=== PATIENT | male | born 1940 | race Caucasian/White ===

== ENCOUNTER 2019-12-04 20:34 | Inpatient (IN) | payer MEDICARE, OTHER ==
[2019-12-04 23:02] VITALS: BP 108/70
[2019-12-04] MEDS ORDERED: Magnesium Hydroxide (MOM) 30 mL UDC PO PRN (23:04)
--- NOTE | 2019-12-05 16:01 | History and Physical ---
History of Present Illness - HPI Chief Complaint: Acute Psychosis HPI: Admitted from [facility]. Patient has history of depression. Patient was making threats to shoot people. Vital Signs: Last Vital Signs Temp 98.0 F 12/05/19 14:00 Pulse 85 12/05/19 14:00 Resp 20 12/05/19 14:00 BP 133/71 12/05/19 14:00 Pulse Ox 94 12/05/19 14:00 Past Medical History Cardiovascular: Report: AFIB, CAD, CHF, HTN, Hyperlipidemia Pulmonary: Report: COPD DIRECTOR TRADE: Report: Peripheral neuropathy GI: Report: Peptic Ulcer Psych: Report: Depression Musculoskeletal: Report: Weakness Rheumatologic: Report: No pertinent Hx Infectious Disease: Report: No Pertinent Hx Renal/: Report: No Pertinent Hx Endocrine: Report: No Pertinent Hx Dermatology: Report: No Pertinent Hx - Past Surgical History Past Surgical History: No pertinent Hx Family Medical History - Family Member Mother History Unknown: Yes Ethnicity: Unknown Living Status: Unknown Social History Smoke: # pack years Alcohol: Other (Dependence) Drugs: None Lives: Jail - Medications Home Medications: Home Medication Medication Instructions Recorded Type Acetaminophen [Tylenol] 2 mg PO Q4HR PRN 12/04/19 History Acetaminophen [Tylenol] 2 tab PO Q4HR PRN 12/04/19 History Amlodipine Besylate 10 mg PO DAILY 12/04/19 History Atorvastatin Calcium [Lipitor] 80 mg PO HS 12/04/19 History Calcium Carbonate [Calcium] 500 mg PO DAILY PRN 12/04/19 History Carvedilol 3.125 mg PO BID 12/04/19 History Cholecalciferol (Vitamin D3) 1,000 units PO DAILY 12/04/19 History [Vitamin D3] Clopidogrel Bisulfate [Clopidogrel] 75 mg PO DAILY 12/04/19 History Diphenhydramine HCl [Benadryl] 1 mg PO HS PRN 12/04/19 History Docusate Sodium [Col-Rite] 250 mg PO BID 12/04/19 History Famotidine [Pepcid] 40 mg PO BID 12/04/19 History Fluticasone/Salmeterol [Airduo 1 each IH Q12HR 12/04/19 History Respiclick 113-14 Mcg] Folic Acid [Folate*] 1 mg PO DAILY 12/04/19 History Gabapentin 100 mg PO TID 12/04/19 History Haloperidol 10 mg PO Q8HR PRN 12/04/19 History Ipratropium/Albuterol Sulfate 3 ml HHN Q6HR 12/04/19 History [Iprat-Albut 0.5-3(2.5) mg/3 ml] Lorazepam [Ativan] 0.5 mg PO Q12HR PRN 12/04/19 History Methocarbamol 500 mg PO Q8HR 12/04/19 History Mirtazapine [Remeron] 7.5 mg PO HS 12/04/19 History Oxycodone HCl/Acetaminophen 1 tab PO Q4HR PRN 12/04/19 History [Percocet 325 mg-10 mg*] Sertraline HCl [Zoloft] 100 mg PO DAILY 12/04/19 History Thiamine [Vitamin B1] 100 mg PO DAILY 12/04/19 History Tiotropium [place] [Spiriva] 18 mcg HHN DAILY 12/04/19 History - Allergies Allergies/Adverse Reactions: Allergies Allergy/AdvReac Type Severity Reaction Status Date / Time No Known Allergies Allergy Verified 12/04/19 22:03 Review of Systems - Review of Systems Constitutional: Report: Weakness Eyes: Report: No Significant ENT: Report: No Significant Respiratory: Report: No Significant Cardiovascular: Report: No Significant Gastrointestinal: Report: No Significant Genitourinary: Report: No Significant Musculoskeletal: Report: No Significant Skin: Report: No Significant Neurological: Report: Weakness Physical Exam - Physical Exam HEENT: Report: Ears Nose Throat within normal limits Neck: Report: Within normal limits Cardiovascular Systems: Report: Regular, Rate and Rhythm, no murmurs noted Respiratory: Report: Clear to Auscultation of lung casillas, Breath Sounds are within normal limits Abdomen: Report: Non-tender to palpation, Bowel Sounds are within normal limits Back: Report: Inspection of back is within normal limits. Extremities: Report: Non-tender to palpation., Patient had full range of motion , No pedal edema was noted on inspection Skin: Report: Color of skin is within normal limits, Warm, Dry, No Rashes noted of the skin Neuro/Psych: Report: A+Ox3, CN II-XII intact, No sensory deficit - Assessment Assessment: * 5150 Hold * Acute Psychosis * BPH * Polyneuropathy * Anemia * GERD * Alcohol dependence * Morbid Obesity * Asthma * PUD * Debility * Tobacco Abuse * COPD * A-Fib * CAD * CHF * HHD * OA Left Shoulder * HLD - Plan Plan: * Continue meds from SNF * Obtain labs * Psych Consult Cranial Nerve Assessment - CRANIAL NERVES alcohol swab:: Yes Distinguishes movements in peripheral field.:: Yes up, down, sideways:: Yes on forehead, cheeks and chin, chews symmetrically:: Yes FACIAL VII: upper: Frowns Symmetrically:: Yes FACIAL VII: Lower: Smiles Symmetrically:: Yes both ears:: Yes GLOSS-PHARYNGEAL IX: Has gag reflex:: Yes VAGUS X: Can make guttural sounds:: Yes ACCESSORY XI: Shrugs shoulders symmetrically:: Yes tremors or fasciculation's:: Yes - MOTOR spasticity, cogwheel, atrophy, tremor, asterixis, other: Yes (Grossly normal) - COORDINATION Finger to nose, heel to haskins, LISA, gait, Romberg: Yes (Grossly normal) - SENSORY signs, Brudzinski, Kernig, neck rigidity:: Yes (Grossly normal) - REFLEXES Brachioradials Right:: Yes Brachioradials Left:: Yes Biceps Right:: Yes Biceps Left:: Yes Triceps Right:: Yes Triceps Left:: Yes Knee Right:: Yes Knee Left:: Yes Ankle Right:: Yes Ankle Left:: Yes Babinski Right:: No Babinski Left:: No
[2019-12-05] MEDS ORDERED: Non-Formulary Item 1 EA (Oxycodone Hcl/Acetaminophen [Percocet 325 Mg-10 Mg*] 1 TAB) PO PRN (20:14)
[2019-12-05] MEDS ORDERED: FLUTICASONE IH SCH (21:00)
[2019-12-05] MEDS ORDERED: SALMETEROL IH SCH (21:00)
[2019-12-06] MEDS: Albuterol/Ipratropium Neb 3 ML AERS HHN SCH ×4 (01:14→18:08)
[2019-12-06] MEDS: Ipratropium Neb 0.5 mg/2.5 mL UD HHN SCH ×2 (01:15→06:15)
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
[2019-12-06] MEDS ORDERED: Non-Formulary Item 1 EA (Tiotropium Bromide [Spiriva] 18 MCG) HHN SCH (09:00)
[2019-12-06] MEDS: Budesonide 0.5 Mg/2 mL Ud HHN SCH (18:08)
[2019-12-06] MEDS: APAP/Oxycodone 5/325mg Tab PO PRN (22:38)
[2019-12-07] MEDS: Albuterol/Ipratropium Neb 3 ML AERS HHN SCH ×4 (01:10→20:00)
--- NOTE | 2019-12-07 03:00 | Progress Notes ---
DATE: 12/06/2019 SUBJECTIVE: Today on [id number] evaluation, very angry man reports "I have my own home, let me go." When attempted to discuss with him what led to his hospitalization, the patient reported just trying to get into penitentiary, is very irritable in regard to his reason for hospitalization. Within the psychiatric hold and very adamant that he never made the statement, still needs lot of redirection. MENTAL STATUS EXAMINATION: Irritable, agitated, anxious, depressed and avoidant. ASSESSMENT AND PLAN: Major depressive disorder, continues to present irritable, depressed, ambivalence about his safety, ____ hurt himself, unable to formulate a safe disposition at this time. Per the returning physician, he was restarted on Zoloft, Aricept. JOB# [id number]
[2019-12-07] MEDS: Budesonide 0.5 Mg/2 mL Ud HHN SCH ×2 (06:23→20:00)
--- NOTE | 2019-12-07 13:29 | Progress Notes ---
DATE: 12/07/2019 SUBJECTIVE: An 78-year-old male, currently in the hospital, refusing to speak with me today, very irritable, upset, was noted to be fairly oriented, withdrawn, depressed, juárez, impulsive, unpredictable. The patient apparently demanding Percocet from staff. Per Dr. Smart's initial assessment, the patient is an 78-year-old male coming in, aggressive, thoughts of shooting people, believing he was in the hospital, multiple medical problems. ASSESSMENT: The patient remains symptomatic, irritable, ongoing concerns for safety, mostly the safety of those around him. PLAN: We will continue inpatient monitoring. JOB# [id number]
--- NOTE | 2019-12-07 14:23 | Internal Medicine Prog Note ---
Internal Medicine Subjective - Subjective Service Date: 12/07/19 Patient seen and examined:: without staff Patient is:: awake, interactive, in bed Per staff patient has:: no adverse event, no episodes of fall (no sob today) Internal Medicine Objective - Physical Exam Vitals and I&O: Vital Signs Temp 98.6 F 12/07/19 06:44 Pulse 75 12/07/19 08:34 Resp 20 12/07/19 06:44 BP 121/71 12/07/19 08:34 Pulse Ox 96 12/07/19 06:44 Intake & Output 12/06/19 12/07/19 12/07/19 18:59 06:59 18:59 Intake Total 800 240 Balance 800 240 Intake: Oral 800 240 Other: # Voids 4 1 # Bowel Movements 0 Active Medications: Current Medications Acetaminophen (Tylenol) 650 mg PO Q4HR PRN PRN Reason: Pain (Mild 1-3) Stop: 02/03/20 20:13 Albuterol/Ipratropium (Duoneb Neb) 3 ml HHN Q6HRT [facility] Stop: 02/04/20 00:59 Last Admin: 12/07/19 13:42 Dose: Not Given Amlodipine Besylate (Norvasc) 10 mg PO DAILY [facility] Stop: 02/04/20 08:59 Last Admin: 12/07/19 08:34 Dose: 10 mg Atorvastatin Calcium (Lipitor) 80 mg PO [facility]; Protocol Stop: 02/04/20 20:59 Last Admin: 12/06/19 20:55 Dose: 80 mg Budesonide (Pulmicort) 0.5 mg HHN BIDRT [facility] Stop: 02/04/20 18:59 Last Admin: 12/07/19 06:23 Dose: 0.5 mg Calcium Carbonate (Os-Mitchell) 500 mg PO DAILY PRN PRN Reason: Indigestion Stop: 02/03/20 20:13 Carvedilol (Coreg) 3.125 mg PO BID [facility] Stop: 02/04/20 08:59 Last Admin: 12/07/19 08:34 Dose: 3.125 mg Cholecalciferol (Vitamin D3) 1,000 iu PO DAILY [facility] Stop: 02/04/20 08:59 Last Admin: 12/07/19 08:34 Dose: 1,000 iu Clopidogrel Bisulfate (Plavix) 75 mg PO DAILY [facility] Stop: 02/04/20 08:59 Last Admin: 12/07/19 08:34 Dose: 75 mg Docusate Sodium (Colace) 250 mg PO BID [facility] Stop: 02/04/20 08:59 Last Admin: 12/07/19 08:34 Dose: 250 mg Donepezil HCl (Aricept) 5 mg PO DAILY [facility] Stop: 02/03/20 13:44 Last Admin: 12/07/19 08:34 Dose: 5 mg Famotidine (Pepcid) 40 mg PO BID [facility] Stop: 02/04/20 08:59 Last Admin: 12/07/19 08:34 Dose: 40 mg Folic Acid (Folate) 1 mg PO DAILY [facility] Stop: 02/04/20 08:59 Last Admin: 12/07/19 08:34 Dose: 1 mg Gabapentin (Neurontin) 100 mg PO TID [facility] Stop: 02/03/20 20:59 Last Admin: 12/07/19 08:34 Dose: 100 mg Magnesium Hydroxide (Milk Of Magnesia) 30 ml PO HS PRN PRN Reason: Constipation Methocarbamol (Robaxin) 500 mg PO Q8HR [facility] Stop: 02/04/20 04:59 Last Admin: 12/07/19 13:43 Dose: Not Given Oxycodone/Acetaminophen (Percocet 5/325mg Oral Tab) 1 tab PO Q4H PRN PRN Reason: Pain (Severe 7-10) Stop: 02/03/20 21:41 Last Admin: 12/06/19 22:38 Dose: 1 tab Sertraline HCl (Zoloft) 50 mg PO DAILY [facility] Stop: 02/03/20 16:59 Last Admin: 12/07/19 08:34 Dose: 50 mg Thiamine HCl (Vitamin B1) 100 mg PO DAILY [facility] Stop: 02/04/20 08:59 Last Admin: 12/07/19 08:34 Dose: 100 mg Zolpidem Tartrate (Ambien) 5 mg PO HS PRN PRN Reason: Insomnia Stop: 02/02/20 23:03 HEENT: NC/AT Neck: Supple Lungs: CTAB Cardiovascular: RRR, Normal S1, Normal S2 Abdomen: soft, non-tender Extremities: clear Internal Medicine Assmt/Plan - Assessment Assessment: 1. COPD exacerbation 2. Severe PAD 3. Etoh dependence 4. Paroxysmal A.fib 5. HTN - Plan Plan: continue supportive care continue duonebs as needed continue [facility] reviewed medical records and d/w r.n.
[2019-12-07] MEDS: APAP/Oxycodone 5/325mg Tab PO PRN (22:00)
[2019-12-07] MEDS: guaiFENesin 200 MG/10 ML UDC PO PRN (22:55)
[2019-12-08] MEDS: Albuterol/Ipratropium Neb 3 ML AERS HHN SCH ×4 (01:00→18:28)
[2019-12-08] MEDS: Budesonide 0.5 Mg/2 mL Ud HHN SCH ×2 (06:18→18:28)
--- NOTE | 2019-12-08 11:48 | Internal Medicine Prog Note ---
Internal Medicine Subjective - Subjective Service Date: 12/08/19 Patient is:: awake, interactive, in bed Per staff patient has:: no adverse event, no episodes of fall (no sob today) Internal Medicine Objective - Physical Exam Vitals and I&O: Vital Signs Temp 97.8 F 12/08/19 05:54 Pulse 74 12/08/19 09:01 Resp 18 12/08/19 05:54 BP 136/57 12/08/19 09:01 Pulse Ox 97 12/08/19 05:54 Intake & Output 12/07/19 12/08/19 12/08/19 18:59 06:59 18:59 Intake Total 1080 400 Balance 1080 400 Intake: Oral 960 400 Other 120 Other: # Voids 3 1 # Bowel Movements 0 0 Active Medications: Current Medications Acetaminophen (Tylenol) 650 mg PO Q4HR PRN PRN Reason: Pain (Mild 1-3) Stop: 02/03/20 20:13 Albuterol/Ipratropium (Duoneb Neb) 3 ml HHN Q6HRT [facility] Stop: 02/04/20 00:59 Last Admin: 12/08/19 06:18 Dose: 3 ml Amlodipine Besylate (Norvasc) 10 mg PO DAILY [facility] Stop: 02/04/20 08:59 Last Admin: 12/08/19 09:01 Dose: 10 mg Atorvastatin Calcium (Lipitor) 80 mg PO HS [facility]; Protocol Stop: 02/04/20 20:59 Last Admin: 12/07/19 20:34 Dose: 80 mg Budesonide (Pulmicort) 0.5 mg HHN BIDRT [facility] Stop: 02/04/20 18:59 Last Admin: 12/08/19 06:18 Dose: 0.5 mg Calcium Carbonate (Os-Mitchell) 500 mg PO DAILY PRN PRN Reason: Indigestion Stop: 02/03/20 20:13 Carvedilol (Coreg) 3.125 mg PO BID [facility] Stop: 02/04/20 08:59 Last Admin: 12/08/19 09:00 Dose: 3.125 mg Cholecalciferol (Vitamin D3) 1,000 iu PO DAILY [facility] Stop: 02/04/20 08:59 Last Admin: 12/08/19 09:01 Dose: 1,000 iu Clopidogrel Bisulfate (Plavix) 75 mg PO DAILY [facility] Stop: 02/04/20 08:59 Last Admin: 12/08/19 09:01 Dose: 75 mg Docusate Sodium (Colace) 250 mg PO BID [facility] Stop: 02/04/20 08:59 Last Admin: 12/08/19 09:00 Dose: 250 mg Donepezil HCl (Aricept) 5 mg PO DAILY [facility] Stop: 02/03/20 13:44 Last Admin: 12/08/19 09:01 Dose: 5 mg Famotidine (Pepcid) 40 mg PO BID [facility] Stop: 02/04/20 08:59 Last Admin: 12/08/19 09:01 Dose: 40 mg Folic Acid (Folate) 1 mg PO DAILY [facility] Stop: 02/04/20 08:59 Last Admin: 12/08/19 09:01 Dose: 1 mg Gabapentin (Neurontin) 100 mg PO TID [facility] Stop: 02/03/20 20:59 Last Admin: 12/08/19 09:01 Dose: 100 mg Guaifenesin (Robitussin) 200 mg PO Q4HR PRN PRN Reason: Cough or Congestion Stop: 02/05/20 21:51 Last Admin: 12/07/19 22:55 Dose: 200 mg Magnesium Hydroxide (Milk Of Magnesia) 30 ml PO HS PRN PRN Reason: Constipation Methocarbamol (Robaxin) 500 mg PO Q8HR [facility] Stop: 02/04/20 04:59 Last Admin: 12/08/19 05:14 Dose: 500 mg Oxycodone/Acetaminophen (Percocet 5/325mg Oral Tab) 1 tab PO Q4H PRN PRN Reason: Pain (Severe 7-10) Stop: 02/03/20 21:41 Last Admin: 12/07/19 22:00 Dose: 1 tab Sertraline HCl (Zoloft) 50 mg PO DAILY [facility] Stop: 02/03/20 16:59 Last Admin: 12/08/19 09:00 Dose: 50 mg Thiamine HCl (Vitamin B1) 100 mg PO DAILY [facility] Stop: 02/04/20 08:59 Last Admin: 12/08/19 09:00 Dose: 100 mg Zolpidem Tartrate (Ambien) 5 mg PO HS PRN PRN Reason: Insomnia Stop: 02/02/20 23:03 HEENT: NC/AT Neck: Supple Lungs: CTAB Cardiovascular: RRR, Normal S1, Normal S2 Abdomen: soft, non-tender Extremities: clear Internal Medicine Assmt/Plan - Assessment Assessment: 1. COPD exacerbation 2. Severe PAD 3. Etoh dependence 4. Paroxysmal A.fib 5. HTN - Plan Plan: continue supportive care continue duonebs as needed continue [facility] reviewed medical records and d/w r.n.
--- NOTE | 2019-12-08 14:32 | Progress Notes ---
DATE: 12/08/2019 SUBJECTIVE: An 78-year-old male, currently in the hospital, somewhat calmer on exam, refusing to speak with me today. Noted to be unpredictable, agitated. Slept for about 6 hours. Resting in bed, not talking to me whatsoever, selectively mute. Per staff, he is oriented, preoccupied, ongoing symptoms, safety concerns, concerns he may act out upon his impulses, strike out, very withdrawn appearing. PLAN: We will continue inpatient monitoring, ongoing symptoms, safety concerns. JOB# [id number]
[2019-12-08] MEDS: APAP/Oxycodone 5/325mg Tab PO PRN ×2 (18:29→22:36)
[2019-12-09] MEDS: Albuterol/Ipratropium Neb 3 ML AERS HHN SCH ×4 (01:15→18:35)
[2019-12-09] MEDS: Budesonide 0.5 Mg/2 mL Ud HHN SCH ×2 (06:22→18:50)
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
--- NOTE | 2019-12-09 17:34 | Internal Medicine Prog Note ---
Internal Medicine Subjective - Subjective Service Date: 12/09/19 Patient is:: awake, interactive, in bed Per staff patient has:: no adverse event, no episodes of fall (no sob today) Internal Medicine Objective - Physical Exam Vitals and I&O: Vital Signs Temp 97 F 12/09/19 14:00 Pulse 77 12/09/19 14:00 Resp 20 12/09/19 14:00 BP 138/63 12/09/19 14:00 Pulse Ox 97 12/09/19 14:00 Intake & Output 12/08/19 12/09/19 12/09/19 18:59 06:59 18:59 Intake Total 1400 120 Balance 1400 120 Intake: Oral 1400 120 Other: # Voids 4 1 # Bowel Movements 1 0 Active Medications: Current Medications Acetaminophen (Tylenol) 650 mg PO Q4HR PRN PRN Reason: Pain (Mild 1-3) Stop: 02/03/20 20:13 Albuterol/Ipratropium (Duoneb Neb) 3 ml HHN Q6HRT [facility] Stop: 02/04/20 00:59 Last Admin: 12/09/19 14:00 Dose: Not Given Amlodipine Besylate (Norvasc) 10 mg PO DAILY [facility] Stop: 02/04/20 08:59 Last Admin: 12/09/19 09:22 Dose: 10 mg Atorvastatin Calcium (Lipitor) 80 mg PO [facility]; Protocol Stop: 02/04/20 20:59 Last Admin: 12/08/19 20:45 Dose: 80 mg Budesonide (Pulmicort) 0.5 mg HHN BIDRT [facility] Stop: 02/04/20 18:59 Last Admin: 12/09/19 06:22 Dose: 0.5 mg Calcium Carbonate (Os-Mitchell) 500 mg PO DAILY PRN PRN Reason: Indigestion Stop: 02/03/20 20:13 Carvedilol (Coreg) 3.125 mg PO BID [facility] Stop: 02/04/20 08:59 Last Admin: 12/09/19 09:22 Dose: 3.125 mg Cholecalciferol (Vitamin D3) 1,000 iu PO DAILY [facility] Stop: 02/04/20 08:59 Last Admin: 12/09/19 09:23 Dose: 1,000 iu Clopidogrel Bisulfate (Plavix) 75 mg PO DAILY [facility] Stop: 02/04/20 08:59 Last Admin: 12/09/19 09:23 Dose: 75 mg Docusate Sodium (Colace) 250 mg PO BID [facility] Stop: 02/04/20 08:59 Last Admin: 12/09/19 09:23 Dose: 250 mg Donepezil HCl (Aricept) 5 mg PO DAILY [facility] Stop: 02/03/20 13:44 Last Admin: 12/09/19 09:28 Dose: 5 mg Famotidine (Pepcid) 40 mg PO BID [facility] Stop: 02/04/20 08:59 Last Admin: 12/09/19 09:24 Dose: 40 mg Folic Acid (Folate) 1 mg PO DAILY [facility] Stop: 02/04/20 08:59 Last Admin: 12/09/19 09:24 Dose: 1 mg Gabapentin (Neurontin) 100 mg PO TID [facility] Stop: 02/03/20 20:59 Last Admin: 12/09/19 15:00 Dose: 100 mg Guaifenesin (Robitussin) 200 mg PO Q4HR PRN PRN Reason: Cough or Congestion Stop: 02/05/20 21:51 Last Admin: 12/07/19 22:55 Dose: 200 mg Magnesium Hydroxide (Milk Of Magnesia) 30 ml PO HS PRN PRN Reason: Constipation Methocarbamol (Robaxin) 500 mg PO Q8HR [facility] Stop: 02/04/20 04:59 Last Admin: 12/09/19 14:00 Dose: 500 mg Oxycodone/Acetaminophen (Percocet 5/325mg Oral Tab) 1 tab PO Q4H PRN PRN Reason: Pain (Severe 7-10) Stop: 02/03/20 21:41 Last Admin: 12/08/19 22:36 Dose: 1 tab Sertraline HCl (Zoloft) 50 mg PO DAILY [facility] Stop: 02/03/20 16:59 Last Admin: 12/09/19 09:25 Dose: 50 mg Thiamine HCl (Vitamin B1) 100 mg PO DAILY [facility] Stop: 02/04/20 08:59 Last Admin: 12/09/19 09:25 Dose: 100 mg Zolpidem Tartrate (Ambien) 5 mg PO HS PRN PRN Reason: Insomnia Stop: 02/02/20 23:03 HEENT: NC/AT Neck: Supple Lungs: CTAB Cardiovascular: RRR, Normal S1, Normal S2 Abdomen: soft, non-tender Extremities: clear Internal Medicine Assmt/Plan - Assessment Assessment: 1. COPD exacerbation 2. Severe PAD 3. Etoh dependence 4. Paroxysmal A.fib 5. HTN - Plan Plan: continue supportive care continue duonebs as needed continue [facility] reviewed medical records and d/w r.n. Nutritional Asmnt/Malnutr-PDOC - Dietary Evaluation Malnutrition Findings (Please click <Entered> for more info): Nutritional Asmnt/Malnutrition Start: 12/09/19 10: 36 Text: Status: Complete Freq: Protocol: Document 12/09/19 13:39 [email or web address] (Rec: 12/09/19 13:44 VALENTIN [id number]) Nutritional Asmnt/Malnutrition Patient General Information Nutritional Screening Low Risk Diagnosis Psychosis Pertinent Medical Hx/Surgical Hx Afib, CAD, CHF, HTN, Hyperlipidemia, COPD, Congestive heart failure, Peptic ulcer, Osteoarthritis Subjective Information Pt is a 78-year-old male admitted on 12/03 d/t aggressive thoughts. Pt is eating an estimated 83% x3days (average) of meals Per Meal/Nutrition Activity Record. Dietary is currently providing an estimated 1800 kcals and 90 gm Pro, per Pt PO intake this is providing an estimated 1500 kcals and 90gm Pro to meet 75% kcal and 100+% Pro needs. Visited pt in room, he stated he did not like his lunch so he did not eat, he took a roast beef sandwich instead once offered. Pr complained about food being bland with no salt, I explained his Cardiac, Na2gm diet Rx, pt understood, but was not thrilled about it. Will continue to monitor PO intake. Anthropometrics Ht:510 Wt: 184 LB (83.63 kg) BMI: 26.39 (Overweight) GI/ Skin Integrity GI: WNL, Soft, Flat, Round, Non-tender BM: 12/07 x1 Not Noted I/O: 1520/Not Noted Skin: WNL, Intact Mynor: 22 Diet Order: Cardiac, Na2Gm Estimated Energy Needs: ( Geriatric, CBW) 6497-5914 kcals (25-30 kcals/ kg) 85-100 g Pro (1.0-1.2 g/kg) 0744-5067 ml (25-30 ml/kg) Current Diet Order/ Nutrition Support Cardiac, Na2Gm Patient / S.O Can Pertinent Medications Os-Mitchell, Coreg, Vitamin D3, Colace, Pepcid, Folate, Vitamin B1 Pertinent Labs 12/03: Glucose 105, BUN/Cr 22/1. 57, HDL 38 Nutritional Hx/Data Height 1.78 m Height (Calculated Centimeters) 177.8 Current Weight (lbs) 83.461 kg Weight (Calculated Kilograms) 83.5 Weight (Calculated Grams) 84473.0 [place] Body Weight 166 % [place] Body Weight 110 Body Mass Index (BMI) 26.4 Weight Status Overweight GI Symptoms GI Symptoms None Last BM 12/07 x1 Difficult in: None Skin Integrity/Comment: WNL, Intact Current %PO Good (75-100%) Estimated Nutritional Goals BEE in Kcals: Using Current wt Calories/Kcals/Kg 25-30 Kcals Calculated 3918-8234 Protein: Using Current wt Protein g/k.0-1.2 Protein Calculated 85-100 Fluid: ml 8813-0568 ml (25-30 ml/kg) Nutritional Problem 1. Problem Problem No nutrition diagnosis at this time. Etiology N/A Signs/Symptoms: N/A Malnutrition Related to Morbid Obesity Malnutrition related to morbid obesity No Intervention/Recommendation Comments Continue Cardiac, Na2Gm diet as tolerated. Expected Outcomes/Goals Expected Outcomes/Goals 1. PO intake to continue to meet 75% of estimated nutritional needs. 2. Monitor PO intake, wt, nutrition related labs, and skin integrity. 3. F/U as low risk in 7-10 days, 12/15-12/18.
[2019-12-09] MEDS: APAP/Oxycodone 5/325mg Tab PO PRN (18:02)
[2019-12-09] MEDS: guaiFENesin 200 MG/10 ML UDC PO PRN (18:50)
[2019-12-10] MEDS: Albuterol/Ipratropium Neb 3 ML AERS HHN SCH ×4 (01:30→18:21)
[2019-12-10] MEDS: Budesonide 0.5 Mg/2 mL Ud HHN SCH ×3 (06:33→18:47)
[2019-12-10] MEDS: APAP/Oxycodone 5/325mg Tab PO PRN ×2 (12:28→18:47)
--- NOTE | 2019-12-10 15:21 | Progress Notes ---
DATE: 12/10/2019 SUBJECTIVE: An 79-year-old male, currently in the hospital, generally more cooperative, no longer attesting to any thoughts of harming others. Friendly on exam, still preoccupied, anxious, was making threats of shooting others, no longer having any of these ideations, slept for about 8 hours. No combative behaviors. The patient with history of heart failure and anemia. Medications were reviewed. Labs reviewed. Vitals were reviewed. ASSESSMENT: An 79-year-old male, seems to be improving, generally calmer, better spirits, any danger to others, seems to be lessening. PLAN: We will continue to monitor, currently pending COVID-19 test. JOB# [id number]
--- NOTE | 2019-12-10 17:46 | Internal Medicine Prog Note ---
Internal Medicine Subjective - Subjective Service Date: 12/10/19 Patient is:: awake, interactive, in bed Per staff patient has:: no adverse event, no episodes of fall (no sob today) Internal Medicine Objective - Physical Exam Vitals and I&O: Vital Signs Temp 97.5 F 12/10/19 14:00 Pulse 82 12/10/19 17:21 Resp 20 12/10/19 14:00 BP 114/74 12/10/19 17:21 Pulse Ox 96 12/10/19 14:00 Intake & Output 12/09/19 12/10/19 12/10/19 18:59 06:59 18:59 Intake Total 0265 018 7529 Balance 3913 733 2013 Intake: Oral 2298 688 3269 Other: # Voids 2 4 # Bowel Movements 1 0 0 Active Medications: Current Medications Acetaminophen (Tylenol) 650 mg PO Q4HR PRN PRN Reason: Pain (Mild 1-3) Stop: 02/03/20 20:13 Albuterol/Ipratropium (Duoneb Neb) 3 ml HHN Q6HRT [facility] Stop: 02/04/20 00:59 Last Admin: 12/10/19 13:32 Dose: 3 ml Amlodipine Besylate (Norvasc) 10 mg PO DAILY [facility] Stop: 02/04/20 08:59 Last Admin: 12/10/19 09:03 Dose: Not Given Atorvastatin Calcium (Lipitor) 80 mg PO [facility]; Protocol Stop: 02/04/20 20:59 Last Admin: 12/09/19 21:22 Dose: 80 mg Budesonide (Pulmicort) 0.5 mg HHN BIDRT [facility] Stop: 02/04/20 18:59 Last Admin: 12/10/19 06:33 Dose: 0.5 mg Calcium Carbonate (Os-Mitchell) 500 mg PO DAILY PRN PRN Reason: Indigestion Stop: 02/03/20 20:13 Carvedilol (Coreg) 3.125 mg PO BID [facility] Stop: 02/04/20 08:59 Last Admin: 12/10/19 17:21 Dose: 3.125 mg Cholecalciferol (Vitamin D3) 1,000 iu PO DAILY [facility] Stop: 02/04/20 08:59 Last Admin: 12/10/19 09:04 Dose: 1,000 iu Clopidogrel Bisulfate (Plavix) 75 mg PO DAILY [facility] Stop: 02/04/20 08:59 Last Admin: 12/10/19 09:04 Dose: 75 mg Docusate Sodium (Colace) 250 mg PO BID [facility] Stop: 02/04/20 08:59 Last Admin: 12/10/19 17:22 Dose: 250 mg Donepezil HCl (Aricept) 5 mg PO DAILY [facility] Stop: 02/03/20 13:44 Last Admin: 12/10/19 09:04 Dose: 5 mg Famotidine (Pepcid) 40 mg PO BID [facility] Stop: 02/04/20 08:59 Last Admin: 12/10/19 17:22 Dose: 40 mg Folic Acid (Folate) 1 mg PO DAILY [facility] Stop: 02/04/20 08:59 Last Admin: 12/10/19 09:05 Dose: 1 mg Gabapentin (Neurontin) 100 mg PO TID [facility] Stop: 02/03/20 20:59 Last Admin: 12/10/19 13:31 Dose: 100 mg Guaifenesin (Robitussin) 200 mg PO Q4HR PRN PRN Reason: Cough or Congestion Stop: 02/05/20 21:51 Last Admin: 12/09/19 18:50 Dose: 200 mg Magnesium Hydroxide (Milk Of Magnesia) 30 ml PO HS PRN PRN Reason: Constipation Methocarbamol (Robaxin) 500 mg PO Q8HR [facility] Stop: 02/04/20 04:59 Last Admin: 12/10/19 12:34 Dose: Not Given Oxycodone/Acetaminophen (Percocet 5/325mg Oral Tab) 1 tab PO Q4H PRN PRN Reason: Pain (Severe 7-10) Stop: 02/03/20 21:41 Last Admin: 12/10/19 12:28 Dose: 1 tab Sertraline HCl (Zoloft) 50 mg PO DAILY [facility] Stop: 02/03/20 16:59 Last Admin: 12/10/19 09:05 Dose: 50 mg Thiamine HCl (Vitamin B1) 100 mg PO DAILY [facility] Stop: 02/04/20 08:59 Last Admin: 12/10/19 09:05 Dose: 100 mg Zolpidem Tartrate (Ambien) 5 mg PO HS PRN PRN Reason: Insomnia Stop: 02/02/20 23:03 HEENT: NC/AT Neck: Supple Lungs: CTAB Cardiovascular: RRR, Normal S1, Normal S2 Abdomen: soft, non-tender Extremities: clear Internal Medicine Assmt/Plan - Assessment Assessment: 1. COPD exacerbation 2. Severe PAD 3. Etoh dependence 4. Paroxysmal A.fib 5. HTN - Plan Plan: continue supportive care continue [facility] as [facility] records and d/w r.n. Nutritional Asmnt/Malnutr-PDOC - Dietary Evaluation Malnutrition Findings (Please click <Entered> for more info): Nutritional Asmnt/Malnutrition Start: 12/09/19 10: 36 Text: Status: Complete Freq: Protocol: Document 12/09/19 13:39 MURPHYFERCHO (Rec: 12/09/19 13:44 MURPHYFERCHO [id number]) Nutritional Asmnt/Malnutrition Patient General Information Nutritional Screening Low Risk Diagnosis Psychosis Pertinent Medical Hx/Surgical Hx Afib, CAD, CHF, HTN, Hyperlipidemia, COPD, Congestive heart failure, Peptic ulcer, Osteoarthritis Subjective Information Pt is a 78-year-old male admitted on 12/03 d/t aggressive thoughts. Pt is eating an estimated 83% x3days (average) of meals Per Meal/Nutrition Activity Record. Dietary is currently providing an estimated 1800 kcals and 90 gm Pro, per Pt PO intake this is providing an estimated 1500 kcals and 90gm Pro to meet 75% kcal and 100+% Pro needs. Visited pt in room, he stated he did not like his lunch so he did not eat, he took a roast beef sandwich instead once offered. Pr complained about food being bland with no salt, I explained his Cardiac, Na2gm diet Rx, pt understood, but was not thrilled about it. Will continue to monitor PO intake. Anthropometrics Ht:510 Wt: 184 LB (83.63 kg) BMI: 26.39 (Overweight) GI/ Skin Integrity GI: WNL, Soft, Flat, Round, Non-tender BM: 12/07 x1 Not Noted I/O: 1520/Not Noted Skin: WNL, Intact Mynor: 22 Diet Order: Cardiac, Na2Gm Estimated Energy Needs: ( Geriatric, CBW) 8746-8748 kcals (25-30 kcals/ kg) 85-100 g Pro (1.0-1.2 g/kg) 6148-4573 ml (25-30 ml/kg) Current Diet Order/ Nutrition Support Cardiac, Na2Gm Patient / S.O Can Pertinent Medications Os-Mitchell, Coreg, Vitamin D3, Colace, Pepcid, Folate, Vitamin B1 Pertinent Labs 12/03: Glucose 105, BUN/Cr 22/1. 57, HDL 38 Nutritional Hx/Data Height 1.78 m Height (Calculated Centimeters) 177.8 Current Weight (lbs) 83.461 kg Weight (Calculated Kilograms) 83.5 Weight (Calculated Grams) 75196.0 [place] Body Weight 166 % [place] Body Weight 110 Body Mass Index (BMI) 26.4 Weight Status Overweight GI Symptoms GI Symptoms None Last BM 12/07 x1 Difficult in: None Skin Integrity/Comment: WNL, Intact Current %PO Good (75-100%) Estimated Nutritional Goals BEE in Kcals: Using Current wt Calories/Kcals/Kg 25-30 Kcals Calculated 3326-5679 Protein: Using Current wt Protein g/k.0-1.2 Protein Calculated 85-100 Fluid: ml 9141-2913 ml (25-30 ml/kg) Nutritional Problem 1. Problem Problem No nutrition diagnosis at this time. Etiology N/A Signs/Symptoms: N/A Malnutrition Related to Morbid Obesity Malnutrition related to morbid obesity No Intervention/Recommendation Comments Continue Cardiac, Na2Gm diet as tolerated. Expected Outcomes/Goals Expected Outcomes/Goals 1. PO intake to continue to meet 75% of estimated nutritional needs. 2. Monitor PO intake, wt, nutrition related labs, and skin integrity. 3. F/U as low risk in 7-10 days, 12/15-12/18.
[2019-12-10] MEDS: guaiFENesin 200 MG/10 ML UDC PO PRN (18:47)
[2019-12-11] MEDS: Albuterol/Ipratropium Neb 3 ML AERS HHN SCH ×3 (01:25→13:42)
[2019-12-11] MEDS: Budesonide 0.5 Mg/2 mL Ud HHN SCH (06:47)
--- NOTE | 2019-12-11 12:41 | Internal Medicine Prog Note ---
Internal Medicine Subjective - Subjective Service Date: 12/11/19 Patient seen and examined:: without staff Patient is:: awake, interactive, in bed Per staff patient has:: no adverse event, no episodes of fall (no sob today) Internal Medicine Objective - Results Recent Labs: Laboratory Last Values Coronavirus (PCR) Negative (Negative) 12/09/19 12:29 - Physical Exam Vitals and I&O: Vital Signs Temp 97.5 F 12/11/19 06:29 Pulse 70 12/11/19 08:54 Resp 20 12/11/19 06:29 BP 134/86 12/11/19 08:54 Pulse Ox 93 12/11/19 06:29 Intake & Output 12/10/19 12/11/19 12/11/19 18:59 06:59 18:59 Intake Total 1000 240 Balance 1000 240 Intake: Oral 1000 240 Other: # Voids 4 2 # Bowel Movements 0 0 Active Medications: Current Medications Acetaminophen (Tylenol) 650 mg PO Q4HR PRN PRN Reason: Pain (Mild 1-3) Stop: 02/03/20 20:13 Albuterol/Ipratropium (Duoneb Neb) 3 ml HHN Q6HRT [facility] Stop: 02/04/20 00:59 Last Admin: 12/11/19 06:47 Dose: 3 ml Amlodipine Besylate (Norvasc) 10 mg PO DAILY [facility] Stop: 02/04/20 08:59 Last Admin: 12/11/19 08:54 Dose: 10 mg Atorvastatin Calcium (Lipitor) 80 mg PO HS [facility]; Protocol Stop: 02/04/20 20:59 Last Admin: 12/10/19 21:10 Dose: 80 mg Budesonide (Pulmicort) 0.5 mg HHN BIDRT [facility] Stop: 02/04/20 18:59 Last Admin: 12/11/19 06:47 Dose: Not Given Calcium Carbonate (Os-Mitchell) 500 mg PO DAILY PRN PRN Reason: Indigestion Stop: 02/03/20 20:13 Carvedilol (Coreg) 3.125 mg PO BID [facility] Stop: 02/04/20 08:59 Last Admin: 12/11/19 08:54 Dose: 3.125 mg Cholecalciferol (Vitamin D3) 1,000 iu PO DAILY [facility] Stop: 02/04/20 08:59 Last Admin: 12/11/19 08:53 Dose: 1,000 iu Clopidogrel Bisulfate (Plavix) 75 mg PO DAILY [facility] Stop: 02/04/20 08:59 Last Admin: 12/11/19 08:54 Dose: 75 mg Docusate Sodium (Colace) 250 mg PO BID [facility] Stop: 02/04/20 08:59 Last Admin: 12/11/19 08:54 Dose: 250 mg Donepezil HCl (Aricept) 5 mg PO DAILY [facility] Stop: 02/03/20 13:44 Last Admin: 12/11/19 08:54 Dose: 5 mg Famotidine (Pepcid) 40 mg PO BID [facility] Stop: 02/04/20 08:59 Last Admin: 12/11/19 08:52 Dose: 40 mg Folic Acid (Folate) 1 mg PO DAILY [facility] Stop: 02/04/20 08:59 Last Admin: 12/11/19 08:54 Dose: 1 mg Gabapentin (Neurontin) 100 mg PO TID [facility] Stop: 02/03/20 20:59 Last Admin: 12/11/19 08:52 Dose: 100 mg Guaifenesin (Robitussin) 200 mg PO Q4HR PRN PRN Reason: Cough or Congestion Stop: 02/05/20 21:51 Last Admin: 12/10/19 18:47 Dose: 200 mg Magnesium Hydroxide (Milk Of Magnesia) 30 ml PO HS PRN PRN Reason: Constipation Methocarbamol (Robaxin) 500 mg PO Q8HR [facility] Stop: 02/04/20 04:59 Last Admin: 12/11/19 05:00 Dose: Not Given Oxycodone/Acetaminophen (Percocet 5/325mg Oral Tab) 1 tab PO Q4H PRN PRN Reason: Pain (Severe 7-10) Stop: 02/03/20 21:41 Last Admin: 12/10/19 18:47 Dose: 1 tab Sertraline HCl (Zoloft) 50 mg PO DAILY [facility] Stop: 02/03/20 16:59 Last Admin: 12/11/19 08:55 Dose: 50 mg Thiamine HCl (Vitamin B1) 100 mg PO DAILY [facility] Stop: 02/04/20 08:59 Last Admin: 12/11/19 08:54 Dose: 100 mg Zolpidem Tartrate (Ambien) 5 mg PO HS PRN PRN Reason: Insomnia Stop: 02/02/20 23:03 Last Admin: 12/10/19 23:15 Dose: 5 mg HEENT: NC/AT Neck: Supple Lungs: CTAB Cardiovascular: RRR, Normal S1, Normal S2 Abdomen: soft, non-tender Extremities: clear Internal Medicine Assmt/Plan - Assessment Assessment: 1. COPD exacerbation 2. Severe PAD 3. Etoh dependence 4. Paroxysmal A.fib 5. HTN - Plan Plan: continue supportive care continue duonebs as needed continue norvasc reviewed medical records and d/w r.n. Nutritional Asmnt/Malnutr-PDOC - Dietary Evaluation Malnutrition Findings (Please click <Entered> for more info): Nutritional Asmnt/Malnutrition Start: 12/09/19 10: 36 Text: Status: Complete Freq: Protocol: Document 12/09/19 13:39 VALENTIN (Rec: 12/09/19 13:44 VALENTIN [id number] [id number]) Nutritional Asmnt/Malnutrition Patient General Information Nutritional Screening Low Risk Diagnosis Psychosis Pertinent Medical Hx/Surgical Hx Afib, CAD, CHF, HTN, Hyperlipidemia, COPD, Congestive heart failure, Peptic ulcer, Osteoarthritis Subjective Information Pt is a 78-year-old male admitted on 12/03 d/t aggressive thoughts. Pt is eating an estimated 83% x3days (average) of meals Per Meal/Nutrition Activity Record. Dietary is currently providing an estimated 1800 kcals and 90 gm Pro, per Pt PO intake this is providing an estimated 1500 kcals and 90gm Pro to meet 75% kcal and 100+% Pro needs. Visited pt in room, he stated he did not like his lunch so he did not eat, he took a roast beef sandwich instead once offered. Pr complained about food being bland with no salt, I explained his Cardiac, Na2gm diet Rx, pt understood, but was not thrilled about it. Will continue to monitor PO intake. Anthropometrics Ht:510 Wt: 184 LB (83.63 kg) BMI: 26.39 (Overweight) GI/ Skin Integrity GI: WNL, Soft, Flat, Round, Non-tender BM: 12/07 x1 Not Noted I/O: 1520/Not Noted Skin: WNL, Intact Mynor: 22 Diet Order: Cardiac, Na2Gm Estimated Energy Needs: ( Geriatric, CBW) 3784-7571 kcals (25-30 kcals/ kg) 85-100 g Pro (1.0-1.2 g/kg) 8241-1007 ml (25-30 ml/kg) Current Diet Order/ Nutrition Support Cardiac, Na2Gm Patient / S.O Can Pertinent Medications Os-Mitchell, Coreg, Vitamin D3, Colace, Pepcid, Folate, Vitamin B1 Pertinent Labs 12/03: Glucose 105, BUN/Cr 22/1. 57, HDL 38 Nutritional Hx/Data Height 1.78 m Height (Calculated Centimeters) 177.8 Current Weight (lbs) 83.461 kg Weight (Calculated Kilograms) 83.5 Weight (Calculated Grams) 10836.0 [place] Body Weight 166 % [place] Body Weight 110 Body Mass Index (BMI) 26.4 Weight Status Overweight GI Symptoms GI Symptoms None Last BM 12/07 x1 Difficult in: None Skin Integrity/Comment: WNL, Intact Current %PO Good (75-100%) Estimated Nutritional Goals BEE in Kcals: Using Current wt Calories/Kcals/Kg 25-30 Kcals Calculated 9246-3855 Protein: Using Current wt Protein g/k.0-1.2 Protein Calculated 85-100 Fluid: ml 7589-9650 ml (25-30 ml/kg) Nutritional Problem 1. Problem Problem No nutrition diagnosis at this time. Etiology N/A Signs/Symptoms: N/A Malnutrition Related to Morbid Obesity Malnutrition related to morbid obesity No Intervention/Recommendation Comments Continue Cardiac, Na2Gm diet as tolerated. Expected Outcomes/Goals Expected Outcomes/Goals 1. PO intake to continue to meet 75% of estimated nutritional needs. 2. Monitor PO intake, wt, nutrition related labs, and skin integrity. 3. F/U as low risk in 7-10 days, 12/15-12/18.
[2019-12-11] MEDS: APAP/Oxycodone 5/325mg Tab PO PRN (15:32)
--- NOTE | 2019-12-11 21:58 | Discharge Summary ---
DATE OF DISCHARGE: 12/11/2019 HISTORY OF PRESENT ILLNESS: An 79-year-old male coming in from a residential on a 5150 hold, danger to others, threatening to harm residents with a gun, stating he could get access to a gun. The patient was angry, upset, noting that the other resident was bothering him, so he was planning on hurting other people in the facility. The patient was admitted, angry, upset, fair orientation. MEDICATIONS: Reviewed. MEDICAL HISTORY: Reviewed. SOCIAL HISTORY: Coming from a residential facility. MENTAL STATUS EXAMINATION: Please see full psych eval for details. DIAGNOSES: Mood, unspecified; anxiety, unspecified. MEDICAL: Please see full H and P. HOSPITAL COURSE: After initial assessment, the patient was admitted to the hospital. Restarted on medications. Medications were evaluated. Over the course of treatment, mood improved, affect improved, calmer, generally more cooperative, no longer is angry, upset, sleeping well, eating well. Toward the latter end of treatments, denying any HI, did not want to hurt anybody. Staff noting calm, friendly, cooperative. CONDITION UPON DISCHARGE: Improved. Allowing ADLs, better ADLs. Fair eye contact. Speech within normal limits. Mood "better." Affect broad. Thought processes were more engaged. No SI, no HI, no intent, no plan, no overt psychotic symptoms, better insight. PROGNOSIS: The patient follows up with outpatient mental health services and remains compliant with treatment. Prognosis will improve, otherwise guarded. JOB# [id number]
== END 2019-12-11 17:45 | DRG 885 ==
LOC: GERO 20:55
PROVIDERS: ADMIT Psychiatry & Neurology Psychiatry; ATTEND Psychiatry & Neurology Psychiatry
DX: F32.3 Major depressive disorder, single episode, severe with psychotic features (principal); J44.1 Chronic obstructive pulmonary disease with (acute) exacerbation; F23 Brief psychotic disorder; N40.0 Benign prostatic hyperplasia without lower urinary tract symptoms; G62.9 Polyneuropathy, unspecified; F39 Unspecified mood [affective] disorder; F41.9 Anxiety disorder, unspecified; D64.9 Anemia, unspecified; K21.9 Gastro-esophageal reflux disease without esophagitis; F10.20 Alcohol dependence, uncomplicated; Y90.9 Presence of alcohol in blood, level not specified; E66.01 Morbid (severe) obesity due to excess calories; Z68.26 Body mass index [BMI] 26.0-26.9, adult; K27.9 Peptic ulcer, site unspecified, unspecified as acute or chronic, without hemorrhage or perforation; F17.200 Nicotine dependence, unspecified, uncomplicated; E78.5 Hyperlipidemia, unspecified; I25.10 Atherosclerotic heart disease of native coronary artery without angina pectoris; I48.91 Unspecified atrial fibrillation; I50.9 Heart failure, unspecified; I48.0 Paroxysmal atrial fibrillation
CPT/HCPCS: 83036-90; 90779; U0003-CS; Z7610